=== PATIENT | male | born 1995 | race Caucasian/White ===

== ENCOUNTER → 2023-12-06 | Outpatient (CLI) | payer OTHER ==
--- NOTE | 2024-01-03 12:22 | MR ---
Patient: Matt Watkins Ordering Physician: Unknown, Unknown ID: [id number] Phone, Pager: Phone: N/A Lalo wilber: N/A : 1995 Age/Gender: 28Y, M Primary Location: N/A Procedure: MR Left knee wo con Stud y Date: 12/06/2023 3:04:03 PM Order #: [id number] EXAMINATION TYPE: MR knee LT wo con DATE OF EXAM: 12/21/2023 COMPARISON: Outside left knee x-ray November 07, 2023 HISTORY: Knee pain and swelling for 3 months TECHNIQUE: Multiplanar, multisequence images of the knee is performed without IV contrast. FINDINGS: MEDIAL MENISCUS: Anterior and posterior horns are intact without tear. LATERAL MENISCUS: Anterior and posterior horns are intact without tear. CRUCIATE LIGAMENTS: The anterior and posterior cruciate ligaments are intact and unremarkable. COLLATERAL LIGAMENTS: The medial collateral ligament and lateral collateral ligament complex are inta ct. Mild fluid signal surrounds the medial collateral ligament. EXTENSOR MECHANISM: Visualized quadriceps and patellar tendons are intact. EFFUSION: [id number] size suprapatellar joint effusion. POPLITEAL CYST: No popliteal/newton cyst. TRICOMPARTMENT SPACES: Tricompartment joint spaces are preserved. No significant spurring. CARTILAGE: Tricompartmental articular cartilage is maintained. BONE MARROW SIGNAL: No focal abnormal marrow signal is appreciated. OTHER: No additional significant abnormality is appreciated. IMPRESSION: 1. Mild MCL sprain injury. No meniscal or ligamentous tear. 2. Small to moderate-size suprapatellar joint effusion.
== END | disposition home or self-care (01) ==
LOC: RADMRIMAIN 15:45
PROVIDERS: ATTEND Orthopaedic Surgery
DX: S83.412A Sprain of medial collateral ligament of left knee, initial encounter (principal); M25.462 Effusion, left knee